=== PATIENT | male | born 1975 | race African-American/Black ===

== ENCOUNTER 2018-10-17 01:06 | Emergency (ER) | payer SELFPAY ==
[~2018-10-17] VITALS: Ht 177.8 cm; Wt 77.1 kg
[2018-10-17 07:19] VITALS: BP 114/75
== END 2018-10-17 07:24 | disposition home or self-care (01) ==
LOC: ER 01:14
DX: L03.115 Cellulitis of right lower limb (principal); F17.210 Nicotine dependence, cigarettes, uncomplicated; F12.10 Cannabis abuse, uncomplicated
CPT/HCPCS: 93971